=== PATIENT | male | born 1995 | race Caucasian/White ===

== ENCOUNTER 2019-10-01 20:24 | Emergency (ER) | payer OTHER, SELFPAY ==
--- NOTE | ~2019-10-01 | CT_ITS ---
EXAMINATION: CT brain wo con DATE: 10/01/2019 21:00 INDICATION: Head injury. TECHNIQUE: Computed tomography (CT) of the head was performed without intravenous contrast. The mA wa s adjusted according to patient size. Iterative reconstruction technique was employed. The dose-lengt h product was 605.33 mGy-cm. COMPARISON: None FINDINGS: There is no intracranial hemorrhage, acute infarction, or abnormal intracranial mass lesion . The ventricles are normal in size. The mastoid air cells are normal. There are many facial bone fra ctures. IMPRESSION: 1. Normal brain. 2. Facial bone fractures. Please refer to the maxillofacial CT report. Reviewed, dictated and finalized at location A. RNAL CONTROL MANAGER
--- NOTE | ~2019-10-01 | CT_ITS ---
EXAMINATION: CT facial & cervical spine wo DATE: 10/01/2019 21:14 INDICATION: Head injury TECHNIQUE: Computed tomography (CT) of the maxillofacial region and cervical spine was performed with out intravenous contrast. Automated exposure control and iterative reconstruction technique were empl oyed. The dose-length product was 220.71 mGy-cm. COMPARISON: None FINDINGS: MAXILLOFACIAL CT: There are fractures of the nasal bones and anterior ethmoid sinuses bilaterally. There are comminuted fractures of the right zygomaticomaxillary complex including comminuted fractures of the anterior, m edial, and posterolateral nichols of the maxillary sinus, zygomatic arch, and lateral wall and floor of right orbit. There is a fracture involving the right pterygoid body and medial and lateral plates. T here is depression of the right face. There is hematoma in right maxillary sinus. There is mucosal th ickening in the paranasal sinuses. There are multiple carious lesions of the teeth. CERVICAL SPINE CT: There is 11 degrees levoscoliosis of cervical spine. Vertebral body heights and intervertebral disc h eights are normal. At C7-T1, there is mild bilateral facet joint osteoarthritis. No neural foraminal stenosis or central canal stenosis. IMPRESSION: 1. Facial bone fractures. 2. Dental disease. 3. Cervical levoscoliosis. Reviewed, dictated and finalized at location A. INE ATTENDANT
--- NOTE | ~2019-10-01 | XR_ITS ---
EXAMINATION: XR pelvis 1-2V DATE: 10/01/2019 21:59 INDICATION: Pelvis injury. TECHNIQUE: An anteroposterior view of the pelvis was obtained. COMPARISON: None. FINDINGS: Bone alignment is normal. No fracture. Joint spaces are normal. IMPRESSION: 1. No fracture. Reviewed, dictated and finalized at location A. D HOCKEY AND LACROSSE COACH IMPRESSION: 1. No fracture.
--- NOTE | ~2019-10-01 | XR_ITS ---
EXAMINATION: XR chest 1V portable DATE: 10/01/2019 21:58 INDICATION: Chest injury. TECHNIQUE: A single frontal view of the chest was obtained. COMPARISON: Chest single view 07/13/2018 FINDINGS: The chest demonstrates clear lungs without pneumonia, pleural effusion, or pneumothorax. Th e heart size is normal. IMPRESSION: 1. No acute cardiopulmonary disease. Reviewed, dictated and finalized at location A. ION BEAMER
[2019-10-01 20:39] VITALS: BP 138/87; PULSE 84; RESP 20; TEMP 36.7; O2SAT 97
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
[2019-10-01] MEDS: MORPHINE SULFATE 2 MG/ML INJ IV PUSH (22:05)
[2019-10-01 22:08] VITALS: BP 120/82; PULSE 72; RESP 16; O2SAT 99
--- NOTE | 2019-10-01 22:16 | PC.NURSE ---
ER Aware that [place] is not available for transfer. Called [facility] to transfer patient to [place]. [id number]
[2019-10-01 22:47] VITALS: BP 120/82; PULSE 70; RESP 18; O2SAT 98
[2019-10-01 23:12] VITALS: BP 125/77; PULSE 82; RESP 16; O2SAT 100
[2019-10-01] MEDS: MORPHINE SULFATE 2 MG/ML INJ (23:12)
== END 2019-10-01 23:15 | disposition short-term general hospital (02) ==
PROVIDERS: Emergency Provider Emergency Medicine
DX: S02.19XA Other fracture of base of skull, initial encounter for closed fracture (principal); S02.2XXA Fracture of nasal bones, initial encounter for closed fracture; S02.40CA Maxillary fracture, right side, initial encounter for closed fracture; S02.40EA Zygomatic fracture, right side, initial encounter for closed fracture; S02.31XA Fracture of orbital floor, right side, initial encounter for closed fracture; S02.841A Fracture of lateral orbital wall, right side, initial encounter for closed fracture; K02.9 Dental caries, unspecified; V03.10XA Pedestrian on foot injured in collision with car, pick-up truck or van in traffic accident, initial encounter
CPT/HCPCS: 70450; 70486; 71045; 72125; 72170; 96374; 96376; 99285; J2270; L0140

== ENCOUNTER 2020-12-31 10:03 | Emergency (ER) | payer OTHER, SELFPAY ==
[2020-12-31 10:09] VITALS: BP 115/83; PULSE 69; RESP 19; TEMP 36.7; O2SAT 98
[2020-12-31 10:17] VITALS: PULSE 69
--- NOTE | 2020-12-31 10:52 | PCCCNOTE ---
Care Coordination spoke with pt about resources for addiction. Written information given to pt. Pt given information about homeless shelters. Pt states he is not addicted to drugs or alcohol but to lies . Pt thankful for information and dismissed care coordination.
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
== END 2020-12-31 11:11 | disposition home or self-care (01) ==
PROVIDERS: Emergency Provider Emergency Medicine
DX: F15.20 Other stimulant dependence, uncomplicated (principal)
CPT/HCPCS: 99281

== ENCOUNTER 2021-02-07 08:38 | Emergency (ER) | payer OTHER, SELFPAY ==
[2021-02-07 09:15] VITALS: BP 110/65; PULSE 80; RESP 14; TEMP 36.6; O2SAT 100
[2021-02-07 09:47] LABS: Basophils Absolute Auto 0.1 K/mm3 (0.0-0.1); Basophils Percent Auto 0.7 % (0.2-1.2); Eosinophils Absolute Auto 0.1 K/mm3 (0-0.3); Eosinophils Percent Auto 0.5 % (0-4.4); Hematocrit 42.8 % (42.0-52.0); Hemoglobin 14.9 g/dL (14.0-18.0); Immature Granulocyte Absolute 0.06 K/mm3 (0.00-0.031); Immature Granulocyte Percent A 0.5 % (0-0.5); Lymphocytes Absolute Auto 1.87 K/mm3 (0.9-3.2); Lymphocytes Percent Auto 16.3 % (18.3-44.2); Mean Corpuscular HGB Conc 34.8 g/dl (32-36); Mean Corpuscular Hemoglobin 30.7 pg (26-34); Mean Corpuscular Volume 88.1 fl (80-100); Monocytes Absolute Auto 1.3 K/mm3 (0.1-0.6); Monocytes Percent Auto 11.2 % (2.6-8.5); Neutrophils Absolute Auto 8.1 K/mm3 (1.3-6.7); Neutrophils Percent Auto 70.8 % (45.5-73.1); Platelet Count Result 292 k/mm3 (150-375); Red Blood Count 4.86 M/mm3 (4.6-6.20); White Blood Count 11.5 K/mm3 (4.5-10.0)
--- NOTE | 2021-02-07 10:09 | PC.NURSE ---
LEFT MESSAGE WITH KELSY ALBERTS PT'S MOTHER #PH [phone] FOR HER TO CALL BACK.
[2021-02-07 10:10] LABS: Alanine Aminotransferase 21 U/L (4-50); Albumin Level 4.5 g/dL (3.5-5.1); Alkaline Phosphatase 67 U/L (38-126); Anion Gap 11 mmol/L (8-16); Aspartate Amino Transferase 42 U/L (17-59); Blood Urea Nitrogen 11 mg/dL (9-20); Calcium 9.1 mg/dL (8.4-10.2); Carbon Dioxide 27 mmol/L (22-30); Chloride 100 mmol/L (98-107); Estimated Glomerular Filt Rate > 60; Glucose 103 mg/dL (75-110); Sodium 138 mmol/L (137-145)
[2021-02-07 10:12] LABS: Ethanol < 10 mg/dL (<10)
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
[2021-02-07 10:39] LABS: Thyroid Stimulating Hormone 0.795 uIU/mL (0.465-4.680)
[2021-02-07 10:47] LABS: Add Urine Microscopic? YES; Appearance Urine Clear (Clear); Bacteria Urine Trace /hpf; Bilirubin Urine Negative (Negative); Blood Urine Negative (Negative); Color Urine Yellow (Yellow); Glucose Urine UA Negative (Negative); Ketones Urine Trace mg/dL (Negative); Leukocyte Esterase Ur Negative LEU/UL (Negative); Mucus Urine Moderate /lpf; Nitrate Urine Negative (Negative); Protein Urine 1+ mg/dL (Negative); RBC Urine 0-2 /hpf (0-2); Specific Grav Ur 1.029 (1.001-1.035); Urobilinogen Urine Negative mg/dL (<2.0); WBC Urine 0-3 /hpf
[2021-02-07 11:06] LABS: Barbiturate Screen Urine Negative (Negative); Benzodiazepines Screen Urine Negative (Negative)
[2021-02-07 11:37] LABS: Cannabinoid Screen Urine Positive (Negative); Cocaine Screen Urine Negative (Negative); Methadone Screen Urine Negative (Negative); Opiate Screen Urine Negative (Negative); Phencyclidine Screen Urine Negative (Negative)
[2021-02-07 14:48] LABS: EDCOVIDSCREEN Negative (Negative)
[2021-02-07 17:03] VITALS: BP 97/55; PULSE 79; RESP 12; O2SAT 99
[2021-02-07 17:55] VITALS: BP 125/77
[2021-02-07] MEDS: POTASSIUM CHLORIDE 20 MEQ PACKET (FOR LIQUID) 40 MEQ PO (18:52)
--- NOTE | 2021-02-07 19:29 | PC.NURSE ---
Report received from TOBIAS Zimmerman. 1:1 sitter observation continues. Noted pt has flight of ideas, talks of hearing 3 voices but is nonspecific about what they're saying. States has not made any further plans to hurt himself. but states he is suicidal, but is non-specific.
--- NOTE | 2021-02-07 19:46 | PC.NURSE ---
Call received from Lety Buffy at [facility]. States all is waiting for is a repeat potassium level.
[2021-02-07 20:04] LABS: Potassium 4.7 mmol/L (3.4-5.0)
--- NOTE | 2021-02-07 20:44 | PC.NURSE ---
Return potassium received and faxed to [facility]. [facility] in intake notified, and will return call when bed available and pt has been accepted.
--- NOTE | 2021-02-07 22:06 | PC.NURSE ---
Report to [facility] to transport patient to [facility].
== END 2021-02-07 22:17 ==
PROVIDERS: Emergency Medicine; Emergency Provider Nurse Practitioner
DX: F20.9 Schizophrenia, unspecified (principal); Z20.822 Contact with and (suspected) exposure to COVID-19
CPT/HCPCS: 36415; 51701; 80053; 80307; 81001; 84132; 84443; 85025; 87426; 99285; A9270; C9803

== ENCOUNTER 2021-02-22 13:56 | Emergency (ER) | payer OTHER, SELFPAY ==
[2021-02-22 13:58] VITALS: BP 116/80; PULSE 110; RESP 16; TEMP 36.9; O2SAT 99
[2021-02-22 14:23] LABS: Basophils Absolute Auto 0.1 K/mm3 (0.0-0.1); Basophils Percent Auto 0.8 % (0.2-1.2); Eosinophils Absolute Auto 0.2 K/mm3 (0-0.3); Eosinophils Percent Auto 2.6 % (0-4.4); Hematocrit 41.1 % (42.0-52.0); Hemoglobin 13.7 g/dL (14.0-18.0); Immature Granulocyte Absolute 0.03 K/mm3 (0.00-0.031); Immature Granulocyte Percent A 0.4 % (0-0.5); Lymphocytes Percent Auto 28.6 % (18.3-44.2); Mean Corpuscular HGB Conc 33.3 g/dl (32-36); Mean Corpuscular Hemoglobin 29.8 pg (26-34); Mean Corpuscular Volume 89.5 fl (80-100); Mean Platelet Volume 10.5 fl (7.4-10.4); Monocytes Percent Auto 11.4 % (2.6-8.5); Neutrophils Absolute Auto 4.7 K/mm3 (1.3-6.7); Neutrophils Percent Auto 56.2 % (45.5-73.1); Platelet Count Result 317 k/mm3 (150-375); Red Blood Count 4.59 M/mm3 (4.6-6.20); Red Cell Distribution Width 13.3 % (11.5-14.5); White Blood Count 8.4 K/mm3 (4.5-10.0)
[2021-02-22 14:29] LABS: Alanine Aminotransferase 20 U/L (4-50); Albumin Level 4.1 g/dL (3.5-5.1); Alkaline Phosphatase 67 U/L (38-126); Anion Gap 6 mmol/L (8-16); Aspartate Amino Transferase 32 U/L (17-59); Bilirubin,Total 0.3 mg/dL (0.2-1.3); Blood Urea Nitrogen 11 mg/dL (9-20); Calcium 8.5 mg/dL (8.4-10.2); Carbon Dioxide 26 mmol/L (22-30); Chloride 106 mmol/L (98-107); Estimated Glomerular Filt Rate > 60; Ethanol < 10 mg/dL (<10); Glucose 124 mg/dL (75-110); Potassium 3.8 mmol/L (3.4-5.0); Sodium 138 mmol/L (137-145)
--- NOTE | 2021-02-22 14:52 | PC.NURSE ---
asked pt for allergies, pt stated I dont know what medicines I'm allergic to I haven't tried them all.
--- NOTE | 2021-02-22 14:57 | PC.NURSE ---
when asked, do you take any medications at home: pt responded with 3 methamphetamine shots a day.
--- NOTE | 2021-02-22 14:58 | PC.NURSE ---
when asked if pt has any medical history pt responded with you see, if your a virgin of , you dont know the sensation of running through your veins.
[2021-02-22 15:00] LABS: Thyroid Stimulating Hormone 0.813 uIU/mL (0.465-4.680)
[2021-02-22 16:04] LABS: Add Urine Microscopic? YES; Appearance Urine Clear (Clear); Bilirubin Urine Negative (Negative); Blood Urine Negative (Negative); Color Urine Yellow (Yellow); Glucose Urine UA Negative (Negative); Ketones Urine Trace mg/dL (Negative); Leukocyte Esterase Ur Negative LEU/UL (Negative); Mucus Urine Rare /lpf; Nitrate Urine Negative (Negative); Protein Urine Negative (Negative); RBC Urine 0-2 /hpf (0-2); Specific Grav Ur 1.019 (1.001-1.035); Squamous Epithelial Cell Urine Rare /hpf (Few); Urobilinogen Urine Negative mg/dL (<2.0); WBC Urine 0-3 /hpf
[2021-02-22] MEDS: HALOPERIDOL 5 MG TABLET PO (16:05)
[2021-02-22] MEDS: LORazepam (*CRX) 0.5 MG TABLET 1 MG PO (16:05)
[2021-02-22 16:20] LABS: Barbiturate Screen Urine Negative (Negative); Benzodiazepines Screen Urine Negative (Negative)
[2021-02-22 16:33] LABS: Cannabinoid Screen Urine Positive (Negative); Cocaine Screen Urine Negative (Negative); Methadone Screen Urine Negative (Negative); Opiate Screen Urine Negative (Negative); Phencyclidine Screen Urine Negative (Negative)
[2021-02-22] MEDS: NICOTINE (*PBKC) 21 MG PATCH 1 PATCH (17:43)
--- NOTE | 2021-02-22 19:09 | PC.NURSE ---
Patient is medically cleared per Dr. Ogden.
--- NOTE | 2021-02-22 19:14 | PC.NURSE ---
report received from TOBIAS Quintero. Assumed care of patient at this time.
--- NOTE | 2021-02-22 20:09 | PC.NURSE ---
Crisis here to evaluate patient.
--- NOTE | 2021-02-22 20:52 | ED.PSYCH ---
HPI - Psych General Chief Complaint: Psychiatric Symptoms Stated Complaint: psych Time Seen by Provider: 02/22/21 14:50 Source: patient Mode of arrival: ambulatory Limitations: no limitations History of Present Illness HPI Narrative: Patient is 25 years old white male brought to the emergency room by his mom because he is acting funny, saying nonsense and been using methamphetamine lately. Patient denies any meth use or any drug use lately. Patient is awake, alert and oriented x4 but every now and then talks nonsense. Patient denies any suicidal or homicidal ideation. Related Data Home Medications Medication Instructions Recorded Confirmed propranolol 02/22/21 risperidone mg 02/22/21 trazodone 02/22/21 Allergies Allergy/AdvReac Type Severity Reaction Status Date / Time No Known Allergies Allergy Verified 02/22/21 15:22 Review of Systems Review of Systems: Narrative: CONSTITUTIONAL: Denies fever, chills, or sweats. EYES: Denies visual changes, redness, or discharge. ENT: Denies rhinorrhea, congestion, sore throat, or otalgia. CARDIOVASCULAR: Denies chest pain, palpitations, or edema. RESPIRATORY: Denies cough or dyspnea. GASTROINTESTINAL: Denies abdominal pain, nausea, vomiting, or diarrhea. GENITOURINARY: Denies dysuria or hematuria. SKIN: Denies rash or itching. MUSCULOSKELETAL: Denies back pain, joint pain, or myalgia. NEUROLOGIC: Denies headache, numbness, or weakness. PSYCHIATRIC: Denies anxiety or depression. PMFSH Social History Social History Substance use type: methamphetamine Exam Narrative: Exam Narrative: General appearance: Well-developed, well-nourished, very pleasant, Skin: Normal color Head: Normocephalic, nontraumatic Eyes: Clear conjunctiva ENT: Oropharynx normal, ears normal, nose normal Neck: Supple, nontender Chest and respiratory: Airway patent, no respiratory distress, no accessory muscle use Heart: Regular rate/rhythm Abdomen: Soft, nontender, no organomegaly, quiet bowel sounds Vascular: Normal peripheral pulses, normal capillary refill. Musculoskeletal: Normal range of motion, nontender back Neurologic: Alert and oriented ?3, PRIMARY C[employer] SALES REPRESENTATIVE is normal as tested, no gross motor deficit Psych: Appearance: grossly normal Mental Status: mental status grossly normal Speech and movement: Normal speech and movement present and Clear speech present Affect: normal affect Attitude: cooperative Thought process: Flight of ideas present, Loose association thought process present, Word salad present (speech) and Racing thoughts present Thought content: Yes Paranoid delusions present and Yes Hallucination(s) present Insight: Poor insight present (Psych) Judgement: Poor judgement present (Psych) Course Course Emergency Course: Stable Reevaluation(s) Reevaluation #1: Patient laying down in bed comfortable, not in any pain or distress, awake, alert oriented x4, denying any suicidal or homicidal ideation, no paranoia at this minute after receiving Ativan and Haldol. Patient still me that he is going to call his mom to come pick him up. Unable to get hold of his mom, answer machine without voice box Date: 02/22/21 Time: 21:16 Vital Signs Vital signs: Vital Signs Temperature 36.9 C 02/22/21 13:58 Pulse Rate 110 H 02/22/21 13:58 Respiratory Rate 16 02/22/21 13:58 Blood Pressure 116/80 02/22/21 13:58 Pulse Oximetry 99 02/22/21 13:58 Temperature 36.9 C 02/22/21 13:58 Pulse Rate 110 H 02/22/21 13:58 Respiratory Rate 16 02/22/21 13:58 Blood Pressure 116/80 02/22/21 13:58 Pulse Oximetry 99 02/22/21 13:58 MDM - Psych MDM Narrative
--- NOTE | 2021-02-22 21:19 | PC.NURSE ---
rn attempted to contact mother- no answer and no voicemail set up.
--- NOTE | 2021-02-22 22:56 | PC.NURSE ---
Unable to reach mother by phone at this time.
--- NOTE | 2021-02-23 03:26 | PC.NURSE ---
Attempted to contact patient's mother again, no answer, unable to leave voicemail. Patient resting in room, NAD, call light within reach.
[2021-02-23 05:52] VITALS: BP 111/82; PULSE 85; RESP 16; O2SAT 98
--- NOTE | 2021-02-23 06:05 | PC.NURSE ---
Attempted to contact patient's mother. No answer, unable to leave a message. Patient in room resting on stretcher. Voices no concerns.
== END 2021-02-23 06:13 | disposition home or self-care (01) ==
PROVIDERS: Emergency Provider Emergency Medicine
DX: F29 Unspecified psychosis not due to a substance or known physiological condition (principal)
CPT/HCPCS: 36415; 80053; 80307; 81001; 84443; 85025; 99284; A9270

== ENCOUNTER 2021-10-16 09:14 | Emergency (ER) | payer OTHER, SELFPAY ==
--- NOTE | ~2021-10-16 | CT_ITS ---
EXAMINATION: CT abdomen pelvis w con DATE: 10/16/2021 10:49 INDICATION: Transaminitis COMPARISON: None. FINDINGS: The lung bases are clear. Heart size is normal. No pericardial or pleural effusion. The liver, gallbladder, bile ducts, spleen, pancreas, pancreatic duct, and adrenal glands and kidneys are unremarkable. No urinary tract calculus or hydroureteronephrosis. There is a prominent amount of fecal material in the rectum. No bowel obstruction is evident. No intr aperitoneal free air is detected. Normal caliber of the abdominal aorta. No intraperitoneal or retroperitoneal or pelvic mass lesion or adenopathy or ascites. The urinary bladder is unremarkable. Normal prostate gland. Included skeletal structures are unremarkable. IMPRESSION: No significant abnormality Reviewed, dictated and finalized at [facility]. Reviewed, dictated and finalized at location [facility]. TH EDUCATION COORDINATOR IMPRESSION: No significant abnormality
--- NOTE | 2021-10-16 09:22 | ED.PSYCH ---
HPI - Psych General Chief Complaint: Psychiatric Symptoms Stated Complaint: altered Time Seen by Provider: 10/16/21 09:15 Source: EMS Mode of arrival: EMS Limitations: altered mental status and other (Pt not answering questions appropriately. According to EMS and PD, this is his baseline behavior.) History of Present Illness HPI Narrative: This pt. was found outside of a local establishment, (Hotel), and was causing a disruption with his behavior. He has a history of the same on multiple occasions. He is noted to be homeless. Pt. does not answer all questions appropriately and he has no external visible signs of trauma. When asked if he has any pain, he replied, I will draw you a heart. He then pointed his right second finger and made a machine noise. He speaks of [place]. Reportedly he was in the , ([place]) in the past according to EMS who found a veterans card in his pocket, and when asked, the pt. states he Still walks on water. This provider attempted to ask patient if he was suicidal or homicidal, and when asked he replied, Did you know that I am one of only two actual humans on the planet. Just me and my sister are humans. He then talks of astrology. complaint: altered mental status Onset (ago): unknown Duration: constant History of same: Yes Associated psychiatric symptoms: other (Unable to adequately assess.) Associated symptoms: other (Unable to adequately assess.) Treatments prior to arrival: none Related Data Home Medications Medication Instructions Recorded Confirmed Unable to Obtain Home Medications 10/16/21 10/16/21 Allergies Allergy/AdvReac Type Severity Reaction Status Date / Time No Known Allergies Allergy Unverified 10/16/21 09:58 Review of Systems Review of Systems: ROS unobtainable: Yes unobtainable due to mental status COUNT INCLUDES [facility] Social History Social History Substance use type: unknown Exam Const: General: no acute distress and alert Limitations: altered mental status Other: Speaking in flight of ideas. Unable to obtain reliable answers to questions if he gives any at all. HENMT: Head: normal to inspection General nose exam: no nasal discharge noted Face and sinus: normal facial exam Mouth: Yes moist mucous membranes abnormal Eyes: Conjunctivae: conjunctivae normal Pupils: Equal, round and reactive pupils present Neck: Neck: normal visual inspection, no lymphadenopathy and no meningeal signs Chest: Chest palpation & inspection: normal inspection of the chest Resp: Effort & Inspection: normal respiratory effort Auscultation: clear to auscultation bilaterally Cardio: Rate: regular rate Rhythm: regular rhythm GI: GI Palp: Yes Soft to palpation, No Tenderness to palpation present (GI), No Guarding due to palpation present (GI), No Rigid due to palpation, No Hernia present and No Palpable mass present Auscultation: normal bowel sounds Skin: General skin exam: normal color Rashes: no rashes Wounds: no wounds Neuro: General: moves all extremities and no focal motor deficits Cranial nerves: Yes Nystagmus not present Extrem: General: normal to inspection Psych: Appearance: disheveled Mental Status: mental status grossly abnormal Affect: No normal affect Thought content: Yes Hallucination(s) present and Yes Derealization present Course Course Emergency Course: At 1121, patient is medically clear for crisis evaluation. At 1314, pt's involuntary admission form is completed and the pt. will be placed for psychiatric care. Vital Signs Vital signs: Vital Signs Temperature 36.7 C 10/16/21 09:24 Pulse Rate 88 10/16/21 09:24 Respiratory Rate 18 10/16/21 09:24 Blood Pressure 114/74 10/16/21 09:24 Pulse Oximetry 99 10/16/21 09:24 Temperature 36.7 C 10/16/21 09:24 Pulse Rate 84 10/16/21 15:20 Respiratory Rate 18 10/16/21 15:20 Blood Pressure 126/83 10/16/21 15:20 Pulse Oximetry 98
[2021-10-16 09:24] VITALS: BP 114/74; PULSE 88; RESP 18; TEMP 36.7; O2SAT 99
[2021-10-16 09:38] LABS: Glucose Point of Care 136 mg/dl (65-105)
[2021-10-16 09:41] LABS: Basophils Absolute Auto 0.1 K/mm3 (0.0-0.1); Basophils Percent Auto 0.9 % (0.2-1.2); Eosinophils Absolute Auto 0.1 K/mm3 (0-0.3); Eosinophils Percent Auto 0.8 % (0-4.4); Hematocrit 44.1 % (42.0-52.0); Hemoglobin 15.2 g/dL (14.0-18.0); Immature Granulocyte Absolute 0.03 K/mm3 (0.00-0.031); Immature Granulocyte Percent A 0.3 % (0-0.5); Mean Corpuscular HGB Conc 34.5 g/dl (32-36); Mean Corpuscular Hemoglobin 30.8 pg (26-34); Mean Corpuscular Volume 89.3 fl (80-100); Mean Platelet Volume 10.5 fl (7.4-10.4); Monocytes Absolute Auto 1.2 K/mm3 (0.1-0.6); Monocytes Percent Auto 11.1 % (2.6-8.5); Neutrophils Absolute Auto 7.1 K/mm3 (1.3-6.7); Neutrophils Percent Auto 66.9 % (45.5-73.1); Platelet Count Result 280 k/mm3 (150-375); Red Blood Count 4.94 M/mm3 (4.6-6.20); Red Cell Distribution Width 13.9 % (11.5-14.5); White Blood Count 10.5 K/mm3 (4.5-10.0)
[2021-10-16 09:51] LABS: Alanine Aminotransferase 206 U/L (4-50); Albumin Level 4.5 g/dL (3.5-5.1); Alkaline Phosphatase 76 U/L (38-126); Anion Gap 9 mmol/L (8-16); Aspartate Amino Transferase 77 U/L (17-59); Bilirubin,Total 1.2 mg/dL (0.2-1.3); Blood Urea Nitrogen 16 mg/dL (9-20); Carbon Dioxide 28 mmol/L (22-30); Chloride 101 mmol/L (98-107); Estimated CRCL calculation 127 ml/min; Estimated Glomerular Filt Rate > 60; Glucose 124 mg/dL (65-110); Potassium 3.9 mmol/L (3.4-5.0); Sodium 138 mmol/L (137-145)
[2021-10-16 10:01] VITALS: BP 115/81; PULSE 88; RESP 20; O2SAT 100
[2021-10-16 10:01] LABS: Add Urine Microscopic? YES; Appearance Urine Clear (Clear); Bilirubin Urine Negative (Negative); Blood Urine Negative (Negative); Color Urine Yellow (Yellow); Glucose Urine UA Negative (Negative); Ketones Urine 1+ mg/dL (Negative); Leukocyte Esterase Ur Negative LEU/UL (Negative); Mucus Urine Few /lpf; Nitrate Urine Negative (Negative); Protein Urine Negative (Negative); RBC Urine 0-2 /hpf (0-2); Specific Grav Ur 1.029 (1.001-1.035); WBC Urine 0-3 /hpf
[2021-10-16] MEDS: SODIUM CHLORIDE 0.9% IV 1,000 ML 999 ML IV CONT (10:21)
[2021-10-16 10:50] LABS: Acetaminophen < 10 ug/mL (10-30); Ethanol < 10 mg/dL (<10); Salicylate < 1.0 mg/dL (2-20)
[2021-10-16 10:52] LABS: Barbiturate Screen Urine Negative (Negative); Benzodiazepines Screen Urine Negative (Negative)
[2021-10-16 10:59] LABS: Cannabinoid Screen Urine Positive (Negative); Cocaine Screen Urine Negative (Negative); Methadone Screen Urine Negative (Negative); Opiate Screen Urine Negative (Negative); Phencyclidine Screen Urine Negative (Negative)
[2021-10-16 11:05] LABS: Hepatitis B Surface Antigen Negative (Negative)
[2021-10-16 11:10] LABS: HAV RESULT Negative (Negative); Hepatitis B Core IgM Result Negative (Negative)
[2021-10-16 11:30] LABS: Hepatitis C Virus Antibody Reactive (Negative)
[2021-10-16 11:33] LABS: Amphetamine Screen Urine Positive (Negative)
[2021-10-16 12:27] LABS: SARS-CoV-2 RNA PCR Negative
[2021-10-16 12:30] VITALS: BP 108/78; PULSE 86; RESP 16; O2SAT 98
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
--- NOTE | 2021-10-16 13:50 | PC.NURSE ---
Ordered pt meal tray
--- NOTE | 2021-10-16 15:00 | PC.NURSE ---
Pt asking to go to a smoking outpost . Offered pt a nicotine patch
[2021-10-16] MEDS: NICOTINE (*PBKC) 21 MG PATCH 1 PATCH TRANSDERM (15:17)
[2021-10-16 15:20] VITALS: BP 126/83; PULSE 84; RESP 18; O2SAT 98
--- NOTE | 2021-10-16 15:30 | PC.NURSE ---
Pt started to become restless, pacing room, kneeling on bed. Flight of ideas.
[2021-10-16] MEDS: LORazepam INJ (*CRX) 2 MG/ML VIAL IV PUSH (16:07)
--- NOTE | 2021-10-16 16:24 | PC.NURSE ---
patient found wandering in [place]. patient redirected to room. yard warehouse worker made aware of need for sitter d/t elopement risk.
--- NOTE | 2021-10-16 16:26 | PC.NURSE ---
Pt attempting to walk out. Pt states he wants a cigarette. Pt redirected back in room, and sitter placed with pt.
--- NOTE | 2021-10-16 17:00 | PC.NURSE ---
Pt given dinner tray at this time, sitter at bedside
[2021-10-16 17:06] VITALS: BP 124/87; PULSE 85; RESP 18; O2SAT 99
--- NOTE | 2021-10-16 17:06 | PC.NURSE ---
[facility] called. ETA [id number]
--- NOTE | 2021-10-16 17:32 | PC.NURSE ---
[facility] intake called and informed me that pt no longer has a bed. He states that they are not taking any pt at this time. This RN informed him that I have already given report and we have an ambulance on their way. He states that he is going to talk to his director and see what he can do.
--- NOTE | 2021-10-16 17:34 | PC.NURSE ---
Called [facility] to speak about situation, went straight to voicemail. Left message to call back
--- NOTE | 2021-10-16 17:47 | PC.NURSE ---
Abdifatah from [facility] called and states that he couldn't get a hold of his director but he got a message from the wash house supervisor that they are no longer taking pts.
--- NOTE | 2021-10-16 17:49 | PC.NURSE ---
[facility] canceled @ 1382 Trip # [id number] - [facility] bed at [facility]
--- NOTE | 2021-10-16 18:03 | PC.NURSE ---
Dasha, [facility] called and stated that she was not aware of this admission and that they are in a staffing crisis and are not able to take the patient at this time. She states that he still has a bed and that they are suppose to get more staff at 11pm and can hopefully him then.
--- NOTE | 2021-10-16 18:17 | PC.NURSE ---
pt calm at this time, resting on stretcher.
--- NOTE | 2021-10-16 18:20 | PC.NURSE ---
Sitter no longer needed at this time, Pt sleeping at this time
--- NOTE | 2021-10-16 23:21 | PC.NURSE ---
Spoke with [facility] intake who does not have staffing available to take the patient at this time. Intake informs me that they will call me back when they have more information. Pt resting comfortably in bed.
--- NOTE | 2021-10-17 04:50 | PC.NURSE ---
Spoke with [facility] intake again during [facility] downtime and they informed me that they will not have a bed for this pt tonight. Will call back in the morning.
--- NOTE | 2021-10-17 04:57 | PC.NURSE ---
Bed will be available for this pt at [facility] at 0700.
--- NOTE | 2021-10-17 05:02 | PC.NURSE ---
made contact with [facility] to transfer pt to [facility] ([facility]) eta [id number]
--- NOTE | 2021-10-17 06:32 | PC.NURSE ---
Pt awake and asking for breakfast tray. Pt informed that the cafeteria is not open at this time. Pt requesting a snack. After giving the snack I informed the pt that his ride to [place] would be here soon. He asked why he needed to be admitted. I informed pt that he was being involuntarily admitted for psychiatric treatment. Pt saying he doesn't need treatment and starts getting dressed and threatening to leave. Security called to bedside and order received for 1mg of Ativan. Pt will not let me administer medication but allowed other RN to administer at this time.
[2021-10-17] MEDS: LORazepam INJ (*CRX) 2 MG/ML VIAL 1 MG IV PUSH ×2 (06:35→15:53)
--- NOTE | 2021-10-17 06:35 | PC.NURSE ---
After wasting Ativan with another RN this RN accidently threw the bottle in the sharps container before being able to scan medication. Med verified by two RN's. This is why medication was not scanned.
[2021-10-17 06:38] VITALS: BP 106/70; PULSE 79; RESP 14; O2SAT 100
--- NOTE | 2021-10-17 07:22 | PC.NURSE ---
ordered pt safety breakfast tray. pt resting in stretcher watching TV. Security at bedside at this time for elopement risk.
--- NOTE | 2021-10-17 09:15 | PC.NURSE ---
told pt I had a new nicotine patch for him. pt states I don't need that bullshit, it's a smack in the face. returned nicotine patch to [facility].
[2021-10-17 09:34] LABS: Glucose Point of Care 86 mg/dl (65-105)
--- NOTE | 2021-10-17 10:30 | PC.NURSE ---
crisis states she believes pt should be able to go over to [facility] now. called [facility] to confirm and they state they will find out and call back when they know.
--- NOTE | 2021-10-17 10:35 | PC.NURSE ---
spoke to Nika at [facility]. she states they will not know if they will have the staff or not until shift change at 3pm today. She states she call us back around 3pm to let us know if we can send them over or not.
[2021-10-17 11:55] VITALS: BP 106/64; PULSE 67; O2SAT 100
--- NOTE | 2021-10-17 13:29 | PC.NURSE ---
Patient told reinaldo, that he was going to leave and if we didn't let him walk out of here, he won't show us the mercy that he showed [facility]. Patient then got off the stretcher and walked to the bathroom. Service Station Helper called security to stop patient from eloping. Patient came out of the bathroom and walked back to his room with train electronic technician. Patient's belongings collected and all items removed to provide a safe room. Staff instructing patient to change into green scrubs, however patient is not cooperating at this time. TOBIAS Martinez and security at bedside talking to patient.
--- NOTE | 2021-10-17 13:37 | PC.NURSE ---
Patient cooperated with TOBIAS Martinez after she instructed him to change multiple times. Patient finally started to remove his clothes and patient was placed in paper scrubs.
[2021-10-17 13:42] VITALS: BP 130/88; PULSE 109; RESP 20; O2SAT 99
[2021-10-17 17:37] VITALS: BP 114/80; PULSE 78; RESP 18; O2SAT 98
--- NOTE | 2021-10-17 17:38 | PC.NURSE ---
EMS here for patient transport to [facility] for admission. Ict Sales Representative gave EMS report, EMS crew denies any questions at this time. Patient finished his dinner then was cooperative and sat on stretcher for transport to [facility].
[2021-10-19 12:15] LABS: Hepatitis C RNA, Quant PCR 105000 IU/mL
== END 2021-10-17 17:42 ==
PROVIDERS: Emergency Provider Nurse Practitioner Adult Health
DX: R41.82 Altered mental status, unspecified (principal); Z20.822 Contact with and (suspected) exposure to COVID-19; Z59.00 Homelessness unspecified
CPT/HCPCS: 36415; 51701; 74177; 80053; 80074; 80307; 81001; 82948; 84443; 85025; 87522; 96361; 96374; 96376; 99285; A9270; C9803; J2060; J7030; Q9967; U0003; U0005

== ENCOUNTER 2021-11-12 01:48 | Emergency (ER) | payer OTHER, SELFPAY ==
--- NOTE | ~2021-11-12 | XR_ITS ---
EXAMINATION: XR chest 1V portable DATE: 11/12/2021 02:22 INDICATION: Psychiatric clearance TECHNIQUE: frontal view of the chest was obtained. COMPARISON: Chest radiograph dated 10/01/2019 FINDINGS: The lungs remain clear with no focal airspace opacities, pulmonary edema, pleural effusion or pneumot horax. The cardiomediastinal silhouette is normal. Mild S-shaped curvature of the thoracolumbar spine . IMPRESSION: 1. No acute cardiopulmonary disease. Reviewed, dictated and finalized at location A.
--- NOTE | 2021-11-12 01:51 | ECG_ITS ---
Measurements Intervals [place] Rate: 58 P: 48 NV: 126 QRS: 36 QRSD: 103 T: 29 QT: 377 QTc: 373 Interpretive Statements SINUS BRADYCARDIA ST ELEVATION, PROBABLY EARLY REPOLARIZATION [ST ELEVATION WITH NORMALLY INFLECTED T WAVE] NORMAL ECG NO PREVIOUS ECG AVAILABLE FOR COMPARISON Electronically Signed On 11-12-2021 7:31:31 CDT by Jay Marin M.D.
[2021-11-12 02:00] VITALS: BP 137/93; PULSE 83; RESP 18; TEMP 36.6; O2SAT 99
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
[2021-11-12 02:20] LABS: Add Urine Microscopic? YES; Appearance Urine Cloudy (Clear); Bacteria Urine Trace /hpf; Bilirubin Urine Negative (Negative); Blood Urine Negative (Negative); Color Urine Yellow (Yellow); Glucose Urine UA Negative (Negative); Ketones Urine Negative (Negative); Leukocyte Esterase Ur Negative LEU/UL (Negative); Mucus Urine Rare /lpf; Nitrate Urine Negative (Negative); Protein Urine Negative (Negative); RBC Urine 0-2 /hpf (0-2); Urobilinogen Urine Negative mg/dL (<2.0); WBC Urine 0-3 /hpf
[2021-11-12 02:21] LABS: Basophils Absolute Auto 0.1 K/mm3 (0.0-0.1); Eosinophils Absolute Auto 0.2 K/mm3 (0-0.3); Hematocrit 45.2 % (42.0-52.0); Hemoglobin 15.4 g/dL (14.0-18.0); Immature Granulocyte Absolute 0.04 K/mm3 (0.00-0.031); Immature Granulocyte Percent A 0.5 % (0-0.5); Lymphocytes Absolute Auto 3.21 K/mm3 (0.9-3.2); Lymphocytes Percent Auto 36.9 % (18.3-44.2); Mean Corpuscular HGB Conc 34.1 g/dl (32-36); Mean Corpuscular Hemoglobin 30.4 pg (26-34); Mean Corpuscular Volume 89.2 fl (80-100); Mean Platelet Volume 10.9 fl (7.4-10.4); Monocytes Absolute Auto 0.9 K/mm3 (0.1-0.6); Monocytes Percent Auto 9.9 % (2.6-8.5); Neutrophils Absolute Auto 4.3 K/mm3 (1.3-6.7); Neutrophils Percent Auto 49.7 % (45.5-73.1); Platelet Count Result 305 k/mm3 (150-375); Red Blood Count 5.07 M/mm3 (4.6-6.20); Red Cell Distribution Width 13.5 % (11.5-14.5); White Blood Count 8.7 K/mm3 (4.5-10.0)
--- NOTE | 2021-11-12 02:29 | PC.NURSE ---
dr. wolff aware pt scores low risk on [place] but he prefers sitter at this time. pt cannot give straight answer to ems, md or nurse stern. dr. wolff wants sitter at this time for elopement risk. he wants pt to be eval and get in-pt psych help
[2021-11-12 02:33] LABS: Alanine Aminotransferase 278 U/L (4-50); Albumin Level 4.2 g/dL (3.5-5.1); Alkaline Phosphatase 91 U/L (38-126); Anion Gap 7 mmol/L (8-16); Aspartate Amino Transferase 88 U/L (17-59); Bilirubin,Total 0.7 mg/dL (0.2-1.3); Blood Urea Nitrogen 9 mg/dL (9-20); Calcium 8.5 mg/dL (8.4-10.2); Carbon Dioxide 22 mmol/L (22-30); Chloride 108 mmol/L (98-107); Estimated CRCL calculation 134 ml/min; Estimated Glomerular Filt Rate > 60; Glucose 117 mg/dL (65-110); Sodium 137 mmol/L (137-145)
[2021-11-12 02:37] LABS: Ethanol < 10 mg/dL (<10)
[2021-11-12 02:41] LABS: Amphetamine Screen Urine Positive (Negative); Barbiturate Screen Urine Negative (Negative); Benzodiazepines Screen Urine Negative (Negative); Cannabinoid Screen Urine Positive (Negative); Cocaine Screen Urine Negative (Negative); Methadone Screen Urine Negative (Negative); Opiate Screen Urine Negative (Negative); Phencyclidine Screen Urine Negative (Negative)
[2021-11-12 02:49] LABS: SARS-CoV-2 RNA PCR Negative
--- NOTE | 2021-11-12 03:05 | PC.NURSE ---
dr wolff agrees patient is elopement risk request continue sitter for patient
[2021-11-12 03:08] LABS: Thyroid Stimulating Hormone 0.904 uIU/mL (0.465-4.680)
[2021-11-12 03:26] LABS: Ammonia < 9 umol/L (9-30)
--- NOTE | 2021-11-12 06:52 | PC.NURSE ---
pt evaluated by crisis recommend admission patient agreed to voluntary admission
--- NOTE | 2021-11-12 07:26 | PC.NURSE ---
Pt refused vitals at this time request breakfast. Per Pt its [place] and he stated the worst has been done to me I'm already Pt then refuse to talk and went back to sleep. This RN will try and assess Pt after breakfast later in the day MD aware.
--- NOTE | 2021-11-12 08:14 | PC.NURSE ---
Merry from [facility] called for intake for this Pt and this RN updated her on Pt status, vitals, past medical HX, DX and mental status. Merry asked to speak with Pt and he refused stated I need to sleep I'll talk with them at 1100 per Merry this time will work and this RN will try and call back with Pt for intake for this Pt. Pt cont to be stable at this time
--- NOTE | 2021-11-12 08:18 | PC.NURSE ---
Merry call from [facility] at [phone]
--- NOTE | 2021-11-12 08:29 | PC.NURSE ---
This RN received call from Yari from [facility] at [phone] about intake for this Pt this Rn answered questions relate to mediation, safety concerns, mental status and past and present medical Hx. Pt Yari CAT is in rounds and they will call back if Pt is able to come intake the center. No other information requested at this time.
--- NOTE | 2021-11-12 10:03 | PC.NURSE ---
This RN received call from Scarlet at the [facility] and was told they will not be taking Prasanth as an Pt no other reason was given.
--- NOTE | 2021-11-12 10:28 | PC.NURSE ---
This RN received call from Yari from [facility] Pt was accepted receiving Dr alicia Elliott request for this RN to fax faces sheet only this was done at [id number]
--- NOTE | 2021-11-12 10:29 | PC.NURSE ---
fax sent ot Yari jimenez [place] at [phone]
--- NOTE | 2021-11-12 14:07 | PC.NURSE ---
This RN was update that Pt EMS would not be able to transport Pt until 11/13/2021 0730. This RN called Yari at [facility] with update and was given an HRT number of [phone] with HRT code of [id number], when this RN called I spoke with Adrian and was updated that transportation would arrive 1615 and the drop hammer pile driver operator is named Gallito. This RN called Yari back at [phone] at 1410 with update and ETA no other issues noted nor is a call back needed unless transportation is delayed.
[2021-11-12 16:30] VITALS: BP 101/64; PULSE 57; RESP 16; TEMP 36.8; O2SAT 99
== END 2021-11-12 16:30 ==
PROVIDERS: Emergency Medicine; Emergency Provider Emergency Medicine
DX: R74.8 Abnormal levels of other serum enzymes (principal); R45.850 Homicidal ideations; F41.9 Anxiety disorder, unspecified; F32.9 Major depressive disorder, single episode, unspecified; Z20.822 Contact with and (suspected) exposure to COVID-19
CPT/HCPCS: 36415; 71045; 80053; 80307; 81001; 82140; 84443; 85025; 93005; 99284; 99285; C9803; U0003; U0005